=== PATIENT | male | born 1955 | race Caucasian/White ===

== ENCOUNTER 2017-10-15 01:49 | Emergency (ER) | payer OTHER ==
[2017-10-15] MEDS ORDERED: Albuterol/Ipratropium 3.0-0.5 MG/3 ML Neb Soln NEB ONE (02:06)
[2017-10-15] MEDS ORDERED: methylPREDNISolone Sodium Succinate 125 MG/2 ML SDV IVPUSH ONE (02:06)
--- NOTE | 2017-10-15 02:06 | EDM.PDOC ---
ED HPI GENERAL MEDICAL PROBLEM - General Chief Complaint: Respiratory Problem Stated Complaint: SOB Time Seen by Provider: 10/15/17 01:57 - History of Present Illness INITIAL COMMENTS - FREE TEXT/NARRATIVE: 61-year-old male presents emergency room with shortness of breath. This runs of breath has been getting worse over the last day or so he has an albuterol inhaler and was using it every 4 hours but then this became more frequent. Portable shortness of breath he had about 1-1/2 week history of upper respiratory infection symptoms he seemed to do okay with this and this did seem to improve. The patient has had problems with wheezing in the past he does not have a history of asthma they have not diagnosed it yet. Patient is not any chest pain or chest pressure no abdominal symptoms no nausea vomiting. He just feels as though he can't catch his breath. - Related Data Allergies Allergy/AdvReac Type Severity Reaction Status Date / Time No Known Allergies Allergy Verified 10/15/17 02:01 Home Meds: Home Meds Albuterol [IJD: Albuterol HFA] 1 puff INH Q6H PRN 10/15/17 [History] Fluticasone Propionate [Flovent HFA 110 MCG] 12 gm INH BID #1 inhaler 10/15/17 [ Rx] predniSONE [Prednisone] 20 mg PO Q24H #20 tablet 10/15/17 [Rx] ED ROS GENERAL - Review of Systems Review Of Systems: See Below Constitutional: Reports: No Symptoms HEENT: Reports: No Symptoms, Other (His URI symptoms of resolved) Respiratory: Reports: Wheezing, Cough. Denies: Pleuritic Chest Pain, Sputum Cardiovascular: Reports: No Symptoms. Denies: Chest Pain, Dyspnea on Exertion, Edema Endocrine: Denies: No Symptoms GI/Abdominal: Reports: No Symptoms. Denies: Abdominal Pain, Constipation, Diarrhea, Nausea, Vomiting : Reports: No Symptoms Musculoskeletal: Reports: No Symptoms Skin: Reports: No Symptoms ED EXAM, GENERAL - Physical Exam Exam: See Below Exam Limited By: No Limitations General Appearance: Alert, No Apparent Distress, Other (Blood pressure was initially quite elevated however this is coming down with observation other vital signs are stable respiratory rate is slightly increased at 24) Nose: Normal Inspection, Normal Mucosa, No Blood Throat/Mouth: Normal Inspection, Normal Lips, Normal Teeth, Normal Gums, Normal Oropharynx, Normal Voice, No Airway Compromise Head: Atraumatic, Normocephalic Neck: Normal Inspection, Supple, Non-Tender, Full Range of Motion Respiratory/Chest: No Respiratory Distress, Decreased Breath Sounds, Wheezing ( Expiratory wheezes throughout), Prolonged Expiration Cardiovascular: Regular Rate, Rhythm, No Edema, No Murmur GI/Abdominal: Normal Bowel Sounds, Soft, Non-Tender Extremities: Normal Inspection, No Pedal Edema Neurological: Alert, Oriented, Normal Cognition Psychiatric: Normal Affect, Normal Mood Course - Vital Signs Last Recorded V/S: Last Vital Signs Temp 36.1 C 10/15/17 01:56 Pulse 73 10/15/17 01:56 Resp 24 H 10/15/17 01:56 BP 170/95 H 10/15/17 01:56 Pulse Ox 94 L 10/15/17 02:28 - Orders/Labs/Meds Orders: Active Orders 24 hr Category Date Time Status RT Aerosol Therapy [RC] ASDIRECTED Care 10/15/17 02:07 Ordered Chest 2V [CR] Stat Exams 10/15/17 02:09 Ordered Meds: Medications Discontinued Medications Generic Name Dose Route Start Last Admin Trade Name Freq PRN Reason Stop Dose Admin Albuterol/Ipratropium 3 ml 10/15/17 02:06 10/15/17 02:26 Duoneb 3.0-0.5 Mg/3 Ml NEB 10/15/17 02:07 3 ml ONETIME ONE Administration Methylprednisolone Sodium Succinate 125 mg 10/15/17 02:06 10/15/17 02:22 Solu-Medrol IVPUSH 10/15/17 02:07 125 mg ONETIME ONE Administration - Re-Assessments/Exams Free Text/Narrative Re-Assessment/Exam: 10/15/17 03:17 Patient is receiving Solu-Medrol off a little early for this to have taken effect yet he's received a DuoNeb treatment and he is feeling somewhat better. Repeat examination shows improved air movement significantly so, he still has some wheezing but he is moving air much better. We'll try an albuterol neb. 10/15/17 03:46 Chest x-ray: Degenerative skeletal changes no infiltrate seen. 10/15/17 04:31 Patient continues to do well repeat examination shows much improved air movement occasional wheeze. The patient really like to go to get some rest at this point he agrees to follow-up in the clinic and take medications as directed. Departure - Departure Time of Disposition: 04:31 Disposition: Home, Self-Care 01 Clinical Impression: Reactive airway disease - Discharge Information Prescriptions: Fluticasone Propionate [Flovent HFA 110 MCG] 12 gm INH BID #1 inhaler predniSONE [Prednisone] 20 mg PO Q24H #20 tablet Referrals: PCP,Not In Area [Primary Care Provider] - Forms: ED Department Discharge Additional Instructions: Return to the emergency room with any questions problems or worsening symptoms. Follow-up at the Hospital clinic on for recheck. [id number] Use your albuterol 2 puffs every 4 hours as needed. You have been started on prednisone take 60 mg daily today take it in the late afternoon starting tomorrow morning take it first thing in the morning. Your steroid dose will taper off take as directed You've been started on Flovent this is a steroid inhaler 1 puff twice daily. Be certain to rinse your mouth out after using this - My Orders Last 24 Hours: My Active Orders 10/15/17 02:07 RT Aerosol Therapy [RC] ASDIRECTED 10/15/17 02:09 Chest 2V [CR] Stat - Assessment/Plan Last 24 Hours: My Active Orders 10/15/17 02:07 RT Aerosol Therapy [RC] ASDIRECTED 10/15/17 02:09 Chest 2V [CR] Stat
[2017-10-15] MEDS ORDERED: Albuterol 0.083% 2.5 MG/3 ML Neb Soln NEB ONE (03:18)
--- NOTE | 2017-10-15 08:10 | CR ---
Chest: Two views of the chest were obtained. Comparison: No prior study. Slight areas of atelectasis seen. Slight nodule noted in the right upper lung most likely due to scarring. Lungs otherwise are clear. Heart size and mediastinum are normal. Anterior wedging of several mid thoracic vertebral bodies are seen and felt to be old. Mild scattered endplate osteophytes seen within the mid and lower thoracic spine. Impression: 1. Incidental findings as noted above. Nothing acute is appreciated. Diagnostic code #2
== END 2017-10-15 04:45 | disposition home or self-care (01) ==
LOC: JD.ED 01:49
DX: J45.909 Unspecified asthma, uncomplicated (principal)
CPT/HCPCS: 71046; 94640; 96374; 99285; J2930; 99284